=== PATIENT | female | born 1980 | race Caucasian/White ===

== ENCOUNTER → 2016-07-18 | Outpatient (CLI) | payer BC ==
[~2016-07-18] MED LIST: CLX/20 PO; EFF/375 PO; MELO15TA4 PO; MTR600X PO; OXYC-57 PO; SPIR50TA3 PO; VALA1TAB31 PO; ZOLP10TA6 PO
== END | disposition home or self-care (01) ==
LOC: C.PAPS 12:04
PROVIDERS: ATTEND Obstetrics & Gynecology
DX: Z01.419 Encounter for gynecological examination (general) (routine) without abnormal findings (principal)

== ENCOUNTER → 2017-07-10 | Day surgery (SDC) | payer BC ==
[2017-07-03 14:50] VITALS: BMI 22.0
--- NOTE | 2017-07-03 15:27 | PAT Medication Instructions ---
Service Date Jul 03, 2017. Current Home Medication List Cyclobenzaprine Hcl (Flexeril), Unknown Dose PO UD PRN for tmj Ibuprofen (Motrin), 600-800 MG PO UD PRN for Pain Oxycodone/Acetaminophen 5MG/325MG (Oxycodone/Acetaminophen 5MG/325MG), 1 TABLET PO Q4H PRN for PRN Pantoprazole (Protonix), 20 MG PO QAM Spironolactone (Aldactone), 100 MG PO QAM Valacyclovir Hcl (Valtrex), 1 GM PO DIRECTED Venlafaxine Hcl (Effexor), 37.5 MG PO QAM Venlafaxine Hcl (Effexor), 75 MG PO QAM Zolpidem Tartrate (Zolpidem Tartrate), 5 MG PO HS PRN for Sleep Medication Instructions For Your Scheduled Surgery - Check with surgeon for instructions: Ibuprofen (Motrin), 600-800 MG PO UD PRN for Pain - Hold the following medications the morning of surgery: Cyclobenzaprine Hcl (Flexeril), Unknown Dose PO UD PRN for tmj Spironolactone (Aldactone), 100 MG PO QAM - Take the following medications the morning of surgery with a sip of water: Venlafaxine Hcl (Effexor), 37.5 MG PO QAM Venlafaxine Hcl (Effexor), 75 MG PO QAM Valacyclovir Hcl (Valtrex), 1 GM PO DIRECTED Pantoprazole (Protonix), 20 MG PO QAM Oxycodone/Acetaminophen 5MG/325MG (Oxycodone/Acetaminophen 5MG/325MG), 1 TABLET PO Q4H PRN for PRN (okay to take up to 4 hours prior to surgery if needed) - Take the following medications as scheduled the night before surgery: Zolpidem Tartrate (Zolpidem Tartrate), 5 MG PO HS PRN for Sleep (if needed) Valacyclovir Hcl (Valtrex), 1 GM PO DIRECTED Oxycodone/Acetaminophen 5MG/325MG (Oxycodone/Acetaminophen 5MG/325MG), 1 TABLET PO Q4H PRN for PRN (if needed) Cyclobenzaprine Hcl (Flexeril), Unknown Dose PO UD PRN for tmj (if needed) If you have any questions please call us at [phone] or [phone] or [phone]
[2017-07-03 16:29] LABS: BASO % 0.2 %; BASO ABS # 0.02 K/uL (0-0.2); EOS % 1.1 %; EOS ABS # 0.09 K/uL (0-0.5); HEMATOCRIT 37.9 % (37-47); HEMOGLOBIN 13.5 g/dL (12.0-16.0); IG# 0.03 K/uL (0.00-0.02); LYMPH % 27.6 %; LYMPH ABS # 2.22 K/uL (1.2-3.4); MEAN CORPUSCULAR HEMOGLOBIN 33.8 pg (25-34); MEAN CORPUSCULAR HGB CONC 35.6 g/dl (32-36); MEAN PLATELET VOLUME 9.8 fL (7.4-10.4); MONO ABS # 0.64 K/uL (0.11-0.59); NEUT % 62.7 %; NEUT ABS # 5.04 K/uL (1.4-6.5); PLATELET COUNT 226 K/uL (130-400); RED CELL DISTRIBUTION WIDTH CV 12.7 % (11.5-14.5); WHITE BLOOD COUNT 8.04 K/uL (4.8-10.8)
[2017-07-03 16:41] LABS: CALCIUM 9.4 mg/dl (8.5-10.1); CREATININE 0.8 mg/dl (0.60-1.20); POTASSIUM 4.4 mmol/L (3.5-5.1)
[~2017-07-10] VITALS: Ht 162.6 cm; Wt 58.9 kg
[~2017-07-10] MED LIST changes: +ACETAMINOPHEN 1000 MG/100 ML IV IV ONE; +ATROPINE SULFATE 0.1 MG/ML 5ML SYR IV PRN; +BUPIVACAINE 0.5 % 5 MG/1 ML MPF 30ML VIAL ONE; +CHECK SCOPOLAMINE PATCH PLACEMENT SCH; -CLX/20 PO; +CYCL5TAB PO; +DEXAMETHASONE SOD INJ 4 MG/ML VIAL ONE; +EFF75 PO; +EpHEDrine SULFATE INJ 50 MG/ML AMP IV PRN; +FENTANYL CITRATE INJ 50 MCG/1 ML 2 ML VIAL ONE; +GLYCOPYRROLATE INJ 0.2 MG/ML VIAL ONE; +HYDROmorphone INJ 1 MG/ML SYR IV PRN; +IBUP600T44 PO; +IBUPROFEN 600 MG TAB PO PRN; +KETOROLAC TROMETHAMINE 30 MG/ML VIAL IV. PRN; +KETOROLAC TROMETHAMINE 30 MG/ML VIAL ONE; +LACTATED RINGER'S 1000ML 1,000 ML IV SCH; +LIDOCAINE HCL 2% 2 ML VIAL (20MG/ML) ONE; -MELO15TA4 PO; +METHYLENE BLUE 0.5% 10 ML VIAL ONE; +MIDAZOLAM HCL 1 MG/ML 2ML VIAL ONE; +NEOSTIGMINE METHYLSULFATE 5 MG/5 ML SYR ONE; +ONDANSETRON INJ 2 MG/ML 2 ML VIAL IV PRN; +ONDANSETRON INJ 2 MG/ML 2 ML VIAL ONE; +OXYC-643 PO; +OXYCODONE/ACETAMINOPHEN 5-325 TAB PO PRN; +PROMETHAZINE HCL INJ 12.5 MG in SODIUM CHLORIDE 0.9% 50ML 50 ML IV PRN; +PROMETHAZINE HCL INJ 25 MG in SODIUM CHLORIDE 0.9% 50ML 50 ML IV PRN; +PROPOFOL IV EMULSION 10 MG/ML 20 ML VIAL IV ONE; +PRT/20 PO; +ROCURONIUM BROMIDE 10 MG/ML 5 ML VIAL IV ONE; +SCOPOLAMINE 1.5 MG TDSY TD ONE; +SCOPOLAMINE 1.5 MG TDSY TD SCH; +SODIUM CHLORIDE 0.9% 1000ML 1,000 ML IV SCH; -SPIR50TA3 PO; +SPIR50TA5 PO
[2017-07-10 06:22] VITALS: BP 132/86; PULSE 70; TEMP 36.9; O2SAT 98; Ht 162.6 cm; Wt 58.9 kg
--- NOTE | 2017-07-10 07:24 | History & Physical Bridge Note ---
H&P Re-Evaluation Bridge Note: I have examined the patient, reviewed the History & Physical and in the interval since the performance of the History & Physical I have noted the following changes of clinical significance: Added removal of IUD and insertion of Mirena to consent. [id number]
--- NOTE | 2017-07-10 09:02 | [facility] Post Operative Brief Note ---
Immediate Operative Summary Operative Date Jul 10, 2017. Pre-Operative Diagnosis Large 7.8cm mass, right ovary Post-Operative Diagnosis Pelvic pain, Right ovarian cyst, patient requests removal and replacement of contraceptive intrauterine device. Procedure(s) Performed Robot Assisted Laparoscopic Right Salpingo-Oophorectomy with Removal and Reinsertion of Mirena Intrauterine device. Surgeon Dr. Enrrique Corona Parts Sales Advisor Surgeon(s) N/A Estimated Blood Loss 5mL Findings Ovarian cyst Specimens Permanent: A. Right fallopian tube and right ovary Fresh: B. Explanted IUD Drains None Anesthesia General Complication(s) None Disposition Recovery Room / PACU
--- NOTE | 2017-07-10 09:03 | Discharge Instructions ---
Discharge Instructions Date of Service Jul 10, 2017. Admission Reason for Admission: Cyst Of Ovary Right, Female Pelvic Pain Discharge Discharge Diagnosis / Problem: Ovarian cyst Discharge Goals Goal(s): Routine recovery after surgery Activity Recommendations Activity Limitations: per Instructions/Follow-up section . Instructions / Follow-Up Instructions / Follow-Up ACTIVITY RECOMMENDATIONS: * Rest the first 2-3 days. You should be back to your normal activity levels by day 3. * No heavy lifting for 2 weeks. * No intercourse, tampons or douching for 1-2 weeks. * You may shower the next day. * Do not drive anytime that you are taking narcotic pain medicines. RETURN TO SCHOOL/WORK: * May return to school or work after 2-3 days. DIET: Nausea may occur in the immediate post-operative period. If so, take clear liquids such as tea, bouillon, apple juice until all nausea has subsided, then resume usual diet. MEDICATIONS: Resume previous medications unless instructed otherwise by your surgeon. Ibuprofen 200mg 2-3 tablets every 4-6 hours as needed -- OR -- Aleve 2 tablets every 8-12 hours as needed for post-operative discomfort Medications are over the counter. Tylenol may be used if above medications are contraindicated or not preferred. Medication should be taken with food or milk. Do not take on an empty stomach. SPECIAL CARE INSTRUCTIONS: * Check temperature twice daily for one week. report any elevation over 101 degrees. * You may experience some vagina spotting and/or bleeding. This is normal for 1 -2 weeks and should not be heavier than a normal period. If it is unusual in amount, call your physician. * Post-operative discomfort may consist of a sore throat, a "bloated" feeling and pain in the shoulders. these are normal symptoms, which usually only last for 2-3 days. * Remove band-aids tomorrow and shower. There is no need to replace band-aids unless there is drainage or discomfort. FOLLOW UP VISIT: Call your doctor's office for a post-operative 2 week visit if not already scheduled. Current Hospital Diet Patient's current hospital diet: Discharge Diet Recommended Diet: Regular Diet Procedures Procedures Performed: Robot Assisted Laparoscopic Right Salpingo-Oophorectomy with Removal and Reinsertion of Mirena Intrauterine device. Pending Studies Studies pending at discharge: no Medical Emergencies . Who to Call and When: Medical Emergencies: If at any time you feel your situation is an emergency, please call 911 immediately. . Non-Emergent Contact Non-Emergency issues call your: Lidding Machine Operator . . "Provider Documentation" section prepared by Ferny Corona. . VTE Core Measure Inpt VTE Proph given/why not?: Clifton Najera, SCD's
[2017-07-10] MEDS: FENTANYL CITRATE INJ 50 MCG/1 ML 2 ML VIAL IV PRN ×4 (09:24→09:40)
--- NOTE | 2017-07-10 09:42 | Anesthesiology Progress Note ---
Anesthesia Post Op Note Date & Time Jul 10, 2017 at 09:41 Vital Signs Pain Intensity: 6.0 Vital Signs Past 12 Hours Date Time Temp Pulse Resp B/P (MAP) Pulse Ox O2 Delivery O2 Flow Rate FiO2 07/10/17 09:32 110/73 07/10/17 09:30 61 18 07/10/17 09:30 61 18 100 07/10/17 09:27 124/78 07/10/17 09:25 63 19 100 07/10/17 09:25 63 19 07/10/17 09:22 126/83 07/10/17 09:20 75 16 100 07/10/17 09:20 75 16 07/10/17 09:16 125/77 07/10/17 09:15 37.1 86 16 125/72 100 Oxymask 10 07/10/17 06:22 36.9 70 18 132/86 (101) 98 Room Air Notes Mental Status: alert / awake / arousable, participated in evaluation Pt Amnestic to Procedure: Yes Nausea / Vomiting: adequately controlled Pain: adequately controlled Airway Patency, RR, SpO2: stable & adequate BP & HR: stable & adequate Hydration State: stable & adequate Anesthetic Complications: no major complications apparent Awake, doing well, no complaints. VSS.
[2017-07-10 11:35] VITALS: BP 112/63; PULSE 81; TEMP 36.9; O2SAT 98
--- NOTE | 2017-07-10 14:21 | OPERATIVE REPORT ---
DATE OF OPERATION: 07/10/2017 PREOPERATIVE DIAGNOSES: Right ovarian mass, right-sided pelvic pain and patient requests removal and reinsertion of new Mirena intrauterine device. POSTOPERATIVE DIAGNOSES: Same. PROCEDURE: Robotically assisted RSO, also removal and insertion of Mirena intrauterine device. SURGEON: Ferny Corona MD PLASTER LATHER: None. ESTIMATED BLOOD LOSS: 5 mL FINDINGS: Small ovarian cysts. SPECIMENS: 1. Right adnexa. 2. Removed IUD. DRAINS: None. ANESTHETIC: General. COMPLICATIONS: None. DISPOSITION: Recovery room. DESCRIPTION OF PROCEDURE: Winifred was given a general anesthetic, prepped and draped in dorsal lithotomy position in [facility]. Bladder drained. A weighted speculum placed in the vagina. I was able to view the IUD. This was removed using a sponge stick. Uterus was sounded to 8 cm. A new IUD was then placed. Using the Mirena insertion device without difficulty, strings were cut to 2 cm. Gloves were changed and it should be noted that a Denson catheter had been placed in her bladder prior to this as well. Gloves were changed and a subumbilical incision was made with scalpel. Using open Gaby technique, we did a cut down through subcutaneous fat to the fascia, splitting the rectus muscles and entering the peritoneal cavity without difficulty. Blunt-tipped Gaby trocar then placed. Balloon inflated for ports stabilization. CO2 gas used to insufflate the abdomen. FINDINGS: Upper abdomen normal, no sign of visceral organ injury. Deep Trendelenburg position obtained and I visualized the pelvis. The right ovary was enlarged; however, it was not as enlarged as we had seen on imaging of 7 cm in the week prior. The left ovary appeared normal. There were no obvious active areas of endometriosis. There did appear to be small pelvic pockets in the cul-de-sac. Bladder flap was negative and there were no other signs of endometriosis. The patient had strongly suggested that she wished her right ovary out as she had recurrent cysts on this in the past. I do think this cyst has somewhat resolved. Because of the new information, I did choose to talk to her close friend, Cecile, who had brought her in and reviewed the situation. I discussed the options with Cecile in the waiting room and suggested we could continue with the RSO even though the cyst seemed to have been a fair amount smaller or we could not do this and just wake her up. I had discussed this with the patient prior and Cecile agreed that taking out the right adnexa was the right move as she has had significant pain on the right side. With the information, we went back and scribed in. Two robotic ports were placed, 1 in the left, 1 in the right and left upper quadrant 8 mm port placed. Robot docked. Arm #1 was monopolar rafael. Arm #2 was bipolar [place]. The procedure was begun by identifying the ureter on the right side. We then made an opening into the broad ligament and identified the ovarian blood supply. A window was made and it was isolated and was able to coagulate the blood supply proximal to the ovary. We were well away from the right ureter. This was then cut. The uterus was then released from its sidewall attachments and then the distal blood supply was also coagulated and cut. The ovary was then free. Hemostasis was excellent. Robot was undocked by removing instruments and undocking. A 5-mm laparoscope was then placed through 1 of the 8-mm ports, and I was able to place a 10-mm bag through the umbilical port. A grasper was used through another accessory port to place the specimen into the bag. Bag was then removed and the ovary was removed along with the port in the umbilical region. We performed a low carbon dioxide pressure test and there was no increased bleeding after irrigation and suction of the area. We had removed the specimen and ports removed under direct visualization. Gas was allowed to escape. Incisions injected with 0.5% Marcaine. Fascia closed carefully with 0 Vicryl and the umbilical incision with several [id number] sutures and then 4-0 subcuticular Monocryl closures. Instruments removed from the cervix and vagina and Denson catheter removed. Urine was clear at the end of the procedure. I attest to the content of the Intraoperative Record and any orders documented therein. Any exception s are noted below.
== END | disposition home or self-care (01) ==
LOC: C.ACU 05:48
PROVIDERS: ATTEND Obstetrics & Gynecology
DX: N83.9 Noninflammatory disorder of ovary, fallopian tube and broad ligament, unspecified (principal); R10.2 Pelvic and perineal pain; Z30.433 Encounter for removal and reinsertion of intrauterine contraceptive device; Z79.899 Other long term (current) drug therapy; Z88.1 Allergy status to other antibiotic agents; Z90.49 Acquired absence of other specified parts of digestive tract; Z98.890 Other specified postprocedural states
CPT/HCPCS: 58300; 58301; 58661; S2900